=== PATIENT | female | born 1935 | race Asian ===

== ENCOUNTER 2025-02-07 12:40 | Emergency (ER) | payer OTHER, MEDICAID, SELFPAY ==
[2025-02-07 13:35] VITALS: BP 156/77; PULSE 104; PULSE 71; RESP 18; TEMP 36.6; O2SAT 99
--- NOTE | 2025-02-07 13:52 | PD.EDSYNC ---
ED Syncope RME/HPI General Chief Complaint: Syncope / Near Syncope Stated Complaint: SYNCOPE Time Seen by Provider: 02/07/25 13:51 Arrival date/time: 02/07/25 12:40 RME / HPI RME / HPI narrative: 89 year old female with a history of dementia with psychosis and hypertension presents to the ED via ambulance for evaluation of syncope. According to medics, the patient's daughter found her unresponsive on the floor, drooling, and unresponsive to painful stimuli. After performing a sternal rub with no response, 911 was called. The daughter reports that prior to the event, the patient had complained of a stabbing pain behind her eyes, which was associated with dark vision, weakness, and ultimately lost consciousness? although the patient does not recall losing consciousness. While in the ED, the patient also reported vaginal pain during urination. No other complaints were mentioned. She denies fevers, chills, chest pain, cough, shortness of breath, abdominal pain, nausea, vomiting, or diarrhea. Related Data Home Medications ?Medication ?Instructions ?Recorded ?Confirmed fluticasone propionate 50 1 spray intranasal QDAY 03/10/21 11/12/21 mcg/actuation nasal spray,suspension ibuprofen 600 mg tablet 600 mg PO BID PRN Pain 03/10/21 11/12/21 lisinopril 20 mg tablet 20 mg PO QDAY 03/10/21 11/12/21 omeprazole 20 mg capsule,delayed 20 mg PO QDAY 03/10/21 11/12/21 release Previous Rx's ?Medication ?Instructions ?Recorded cephalexin 500 mg capsule 500 mg PO TID #21 caps 02/07/25 Allergies Allergy/AdvReac Type Severity Reaction Status Date / Time No Known Allergies Allergy Verified 11/12/21 14:53 Review of Systems Review of Systems Narrative Review of Systems: Gen: No fever, no chills, no weight loss EYES: No discharge, no visual changes, +stabbing eye pain BL eyes HEENT: No ear pain, no congestion, no sore throat PULM: No shortness of breath, no cough, no congestion CV: +syncope?. No chest pain, no dyspnea on exertion, no palpitations GI: No nausea, no vomiting, no diarrhea, no pain, no constipation : +vaginal pain with urinating. No frequency, no urgency,? no dysuria Musc/skel: No joint pain, no back pain Skin: No rash. Neuro: No weakness, no headache Past Medical History Past Medical History NEUROLOGIC: Positive Dementia; Negative Cerebrovascular Accident or Transient Ischemic Attacks (TIA) CARDIAC: Positive Hypertension; Negative Cardiac Disorders, Myocardial Infarction or Congestive Heart Failure RESPIRATORY: Negative Chronic Obstructive Pulmonary Disease (COPD) or Asthma GENITOURINARY: Negative Renal Disease ENDOCRINE: Negative Diabetes Mellitus Type 1 or Diabetes Mellitus Type 2 HEMATOLOGIC: Negative Sickle Cell Disease Social History SMOKING STATUS: Never smoker ED Exam Narrative Physical exam: GENERAL: In general the patient is awake, interactive, in an emergency department gurney.? HEAD/EYES/EARS/NOSE/THROAT: normo-cephalic, atraumatic, mucus membranes are moist.? No cervical tenderness palpation midline.? Supple neck. CARDIOVASCULAR: regular rate and regular rhythm, no murmurs, heart sounds are not distant, strong pulses in all four extremities that are equal and symmetric bilateral upper and lower extremities, normal capillary refill. CHEST/PULMONARY: normal chest rise and fall, good air movement, clear to auscultation bilaterally, normal inspiratory to expiratory ratios without evidence of respiratory distress. ABDOMEN: soft, not tender, no masses appreciated BACK: normal range of motion without pain. NEUROLOGICAL: cranio-facial features are symmetric, moves all four extremities equally without obvious limitations or weakness, normal figer to nose, no facial droop, walked with a normal gait. EXTREMITY: no tenderness to palpation over the long bones or large joints of the bilateral upper and lower extremities, no joint swelling, no joint erythema, no signs of trauma, no unilateral leg swelling and no peripheral edema. SKIN: warm, dry, well-perfused, no jaundice, no rash, no telangiectasias or petechia. PSYCH: calm, cooperative, no evidence of psychosis or agitation Course Quality Measures none Orders Category Date Time Status Bedside Blood Glucose NOW Care 02/07/25 14:18 Active Cilnical Scientist Q4H START 00 Care 02/07/25 14:18 Active Insert IV NOW Care 02/07/25 14:18 Active XR chest 1V SEPSIS PROTOCOL Stat Exams 02/07/25 14:18 Completed BNP [B-Type Natriuretic Peptide] Stat Lab 02/07/25 14:50 Completed Blood Culture (Lab) Stat Lab 02/07/25 14:50 Received CBC Stat Lab 02/07/25 14:50 Completed CMP [Comprehensive Metabolic Panel] Stat Lab 02/07/25 14:50 Completed Lactate (Lactic Acid) Stat Lab 02/07/25 17:13 Completed Lactic Acid [Lactate (Lactic Acid)] Stat Lab 02/07/25 14:50 Results Partial Thromboplastin Time Stat Lab 02/07/25 14:50 Completed Procalcitonin Stat Lab 02/07/25 14:50 Completed Prothrombin Time with INR Stat Lab 02/07/25 14:50 Completed Troponin I Stat Lab 02/07/25 14:50 Completed Urinalysis, C/S if Indicated Stat Lab 02/07/25 14:35 Completed Sodium Chloride 0.9% 1000 ml [Ns] 1,000 ml Med 02/07/25 15:49 Discontinued IV 999 mls/hr cefTRIAXone [Rocephin] 1,000 mg Med 02/07/25 15:48 Discontinued SODIUM CHLORIDE 0.9% (Popper) [Ns 0.9% (P)] 50 ml IV X1 EKG (RT) Stat RT 02/07/25 14:18 Draft Oxygen Delivery NOW RT 02/07/25 14:18 Active Vital Signs Vital signs: Vital Signs Temperature 97.9 F 02/07/25 13:35 Pulse Rate 104 H 02/07/25 13:35 Respiratory Rate 18 02/07/25 13:35 Blood Pressure 156/77 H 02/07/25 13:35 Pulse Oximetry (%) 99 02/07/25 13:35 Oxygen Delivery Method Room Air 02/07/25 13:35 Pulse ox is 99% on room air which is adequate. Syncope MDM Narrative MDM Narrative:: IEvon am scribing for and in the presence of Dr. Weinstein. Patient data External records reviewed:: [facility] previous records (I reviewd ED visit on 09/07/2023 ) and EMS form Clinical information provided by:: patient, EMS and family (Granddaughter adds to hpi ) Social determinants that could affect healthcare access:: none Patient has the following chronic illnesses:: dementia with psychosis, hypertension How is presenting disease/condition affected by chronic disease/condition?: exacerbated by Evaluation data The following diagnostics were reviewed and interpreted by me:: lab results, radiology exam(s) and EKG tracing(s) (Sinus rhythm, rate 83, no ST elevation or depression, no STEMI. ) Lab and/or radiology exams considered but not ordered:: None Interpretation Summary: Ordering Physician: Monae Weinstein MD Date of Service: 02/07/25 Procedure(s): XR chest 1V SEPSIS PROTOCOL Accession Number(s): [id number] cc: Wale Jimenez MD; Monae Weinstein MD~ Examination: AP chest single view Technique one AP portable upright chest single view Exam date and time: February 07, 2025 1325 hours Comparison February 21, 2018 INDICATIONS: Sepsis protocol FINDINGS: Early bibasilar pneumonia. Normal heart size Prominent osteopenia IMPRESSION: Early bibasilar pneumonia Dictated By: Wale Jimenez MD Signed By: <Electronically signed by Wale Jimenez MD in OV> 02/07/25 1436 Medications / Prescriptions Medications or Prescriptions considered but not ordered:: None Medication administrations:: Medication Administration History Discontinued Medications Ceftriaxone Sodium 1,000 mg/ (Sodium Chloride) 50 mls @ 100 mls/hr IV X1 ONE Stop: 02/07/25 16:17 Last Infusion: 02/07/25 17:21 Dose: Infused Documented By: Admin: 02/07/25 16:18 Dose: 100 mls/hr Documented By: GIOVANA Sodium Chloride (Ns) 1,000 mls @ 999 mls/hr IV .Q1H1M ONE Stop: 02/07/25 16:49 Last Infusion: 02/07/25 17:21 Dose: Infused Documented By: Admin: 02/07/25 16:18 Dose: 999 mls/hr Documented By: GIOVANA See above Consultations Consultation(s) initiated? (list below): No Diagnosis Syncope Differential Diagnosis: syncope due to orthostatic hypotension, vasovagal syncope, dehydration and other (UTI ) Most likely diagnosis given after review of the tests above:: General weakness Dysuria Admission Indicated Admission indicated?: not indicated Admission Request Was there a request for admission?: No Disposition Plan Disposition Plan: Discharge Discharge Attestation Discharge Attestation: The patient and all family members were given an opportunity to ask questions and understood the discharge instructions. Discharge instructions specifically effects, indications for sooner follow up or return to the emergency department, and the expected course of current diagnosis. Patient condition: Stable Discharge Plan Prescriptions/Referrals Prescriptions/Med Rec: New cephalexin 500 mg capsule 500 mg PO TID Qty: 21 0RF No Action lisinopril 20 mg tablet 20 mg PO QDAY omeprazole 20 mg Capsule,Delayed Release(Dr/Ec) 20 mg PO QDAY ibuprofen 600 mg tablet 600 mg PO BID PRN (Reason: Pain) fluticasone propionate 50 mcg/actuation spray,suspension 1 spray INTRANASAL QDAY Patient Comments: USE 1 SPRAY INTO EACH NOSTRIL ONCE DAILY Rx Instructions: 1 SPRAY NASALLY EVERY MORNING FOR 30 DAYS Problem List Clinical Impression: General weakness, Dysuria Patient/Caregiver Discharge Instructions Education Materials: Dysuria, ED Weakness (Uncertain Cause) Additional Instructions: -Please take the antibiotics as prescribed. -You will need to follow-up with your primary care physician, in the next 72 hours so you can get the results of the urine culture. If it is abnormal we will call you. -Ensure you are staying hydrated with Pedialyte and Gatorade. -Return to emergency department for worsening symptoms, or any other concerns. Print Language: Maldivian
[2025-02-07 14:18] VITALS: PULSE 77
--- NOTE | 2025-02-07 14:18 | EKG_ITS ---
[facility] (Formerly [facility]) Test Date: 2025-02-07 Pat Name: MARIANELA NAVAS Department: Room: - Gender: Female Manager Primary Care: : 1935 Requested By: Monae Melendez Order Number: [id number] Reading MD: Monae Melendez Measurements Intervals [place] Rate: 83 P: 70 MD: 170 QRS: 53 QRSD: 86 T: 69 QT: 363 QTc: 428 Interpretive Statements SINUS RHYTHM No previous ECG available for comparison /store/S0/[id number]/[id number].pdf
--- NOTE | 2025-02-07 14:18 | XR_ITS ---
Examination: AP chest single view Technique one AP portable upright chest single view Exam date and time: February 07, 2025 1325 hours Comparison February 21, 2018 INDICATIONS: Sepsis protocol FINDINGS: Early bibasilar pneumonia. Normal heart size Prominent osteopenia IMPRESSION: Early bibasilar pneumonia
[2025-02-07 14:47] LABS: Collection Type, Urine Clean Catch; Squamous Epithelial Cell,Urine 0 /hpf (0-5)
[2025-02-07 15:04] LABS: Lactate (Lactic Acid) 2.1 mMol/L (0.4-2.0)
[2025-02-07 15:11] LABS: Basophils % (Auto) 0 % (0-2.5); Eosinophils # (Auto) 0.1 Thou/mm3 (0.0-0.5); Eosinophils % (Auto) 1 % (0-10); Hematocrit 36.9 % (36.0-46.0); Hemoglobin 12.8 g/dL (12.0-16.0); Immature Granulocytes % (Auto) 0 % (0-0); Immature Granulocytes Auto 0.03 Thou/mm3 (0.00-0.00); Lymphocytes # (Auto) 0.8 Thou/mm3 (1.0-4.8); Lymphocytes % (Auto) 9 % (10-50); Mean Corpuscular HGB Conc 34.7 g/dl (31.0-37.0); Mean Corpuscular Hemoglobin 30.6 pg (25.0-35.0); Mean Corpuscular Volume 88 fL (80-100); Monocytes # (Auto) 0.7 Thou/mm3 (0.0-0.8); Monocytes % (Auto) 8 % (0-12); Neutrophils # (Auto) 6.7 Thou/mm3 (1.8-7.7); Neutrophils % (Auto) 81 % (37-80); Nucleated Red Blood Cell % 0 /100 WBC (0); Platelet Count 252 Thou/mm3 (140-440); RDW Standard Deviation 37.9 fL (36.4-46.3); Red Blood Count 4.18 Miln/mm3 (4.00-5.20); White Blood Count 8.2 Thou/mm3 (3.6-11.0)
[2025-02-07 15:18] LABS: Bilirubin,Urine Negative (Negative); Blood,Urine Negative (Negative); Clarity,Urine Clear (Clear/Hazy); Color,Urine Lt-Yellow (Lt Yel-Yel); Culture Indicated,Urine Not Indicated; Glucose, Urine 2+ (Negative); Hyaline Casts,Urine < 1 /hpf (0-1); Ketones,Urine Negative (Negative); Leukocyte Esterase,Urine Negative (Negative); Nitrite,Urine Negative (Negative); PH,Urine 6.5 (5.0-7.0); Protein,Urine Negative (Neg - Trace); RBC,Urine 2 /hpf (0-3); Specific Gravity,Urine 1.014 (1.001-1.035); Urobilinogen,Urine Negative mg/dL (0.0-1.0); WBC,Urine 7 /hpf (0-5)
[2025-02-07 15:28] LABS: Alanine Aminotransferase 11 U/L (10-49); Albumin/Globulin Ratio 1.5 (1.2-2.2); Alkaline Phosphatase 87 U/L (46-116); Anion Gap 8 (7-16); Aspartate Amino Transferase 21 U/L (0-34); BUN/Creatinine Ratio 11 Ratio (12-20); Bilirubin,Total 0.3 mg/dL (0.3-1.2); Blood Urea Nitrogen 10 mg/dL (9-23); Calcium 9.5 mg/dL (8.3-10.6); Calcium (Corrected) 9.5 mg/dL (8.5-10.1); Carbon Dioxide 28.1 mMol/L (20.0-31.0); Chloride 100 mMol/L (98-107); Creatinine (Component) 0.9 mg/dL (0.6-1.3); Globulin 2.7 gm/dL (2.3-3.5); Glucose 100 mg/dL (74-106); Osmolality,Calculated 270 (275-295); Potassium 4.7 mMol/L (3.4-5.1); Sodium 136 mMol/L (136-145); Total Protein 6.7 gm/dL (5.7-8.2); Troponin I < 0.020 ng/mL (0.0-0.045); eGFR > 60 See Note
[2025-02-07 15:32] LABS: Procalcitonin 0.04 ng/ml (0.0-0.49)
[2025-02-07 15:38] LABS: B-Type Natriuretic Peptide 33 pg/mL (0-100)
[2025-02-07 16:03] VITALS: BP 126/65; PULSE 87; RESP 17; TEMP 36.6; O2SAT 96
[2025-02-07] MEDS: SODIUM CHLORIDE 0.9% 1000 ML 1,000 ML 999 ML IV (16:18)
[2025-02-07] MEDS: cefTRIAXone 1,000 MG in SODIUM CHLORIDE 0.9% (Popper) 50 ML 100 MG IV (16:18)
[2025-02-07 16:50] LABS: Partial Thromboplastin Time 24.8 Seconds (22.0-36.0); Prothrombin Time 10.9 Seconds (9.0-12.2)
[2025-02-07 17:27] LABS: Lactate (Lactic Acid) 1.3 mMol/L (0.4-2.0)
[2025-02-07 17:59] VITALS: BP 131/71; PULSE 80; RESP 19; TEMP 36.7; O2SAT 99
[2025-02-07 18:03] LABS: Reflex Lactate? Y
[2025-02-07 18:28] VITALS: BP 131/71; PULSE 82; RESP 16; O2SAT 98
== END 2025-02-07 18:34 | disposition home or self-care (01) ==
LOC: SERX 17:41
PROVIDERS: Emergency Provider Emergency Medicine; PCP Nurse Practitioner Family
DX: J18.9 Pneumonia, unspecified organism (principal); R30.0 Dysuria; I10 Essential (primary) hypertension
CPT/HCPCS: 36415; 71045; 80053; 81001; 83605; 83880; 84145; 84484; 85025; 85610; 85730; 87040; 93005; 99284; J0696; J7030; J7050